=== PATIENT | male | born 1975 | race African-American/Black ===

== ENCOUNTER 2017-09-04 13:11 | Emergency (ER) | payer OTHER ==
[~2017-09-04] VITALS: Ht 175.3 cm; Wt 128.4 kg
[~2017-09-04 13:11] MED LIST: ALDACTONE25 MG PO; CARVEDILOL25 MG PO; COREG PO; K-DUR 20 MEQ T20 MEQ PO; LANOXIN 0.250.25 MG PO; LASIX 40 MG TAB40 M1 PO; LISINOPRIL20 MG PO; SPIRONOLACTONE25 M1 OR
[2017-09-04 13:34] LABS: ABSOLUTE NEUTROPHILS 6.7 thou/uL (1.4-8.2); BASOPHILS 0.7 % (0.0-2.0); EOSINOPHILS 1.9 % (0.0-3.0); HEMATOCRIT 42.2 % (42.0-52.0); HEMOGLOBIN 13.9 gm/dL (14.0-18.0); LYMPHOCYTES 24.5 % (24.0-44.0); MCHC 32.9 g/dL (28.0-37.0); MCV 75.9 fL (80.0-100.0); MONOCYTES 8.2 % (1.0-8.0); PLATELET COUNT 169 thou/uL (150-400); POLYS 64.7 % (36.0-66.0); RBC 5.55 mil/uL (4.50-6.00); RDW 14.7 % (10.5-14.5); WBC 10.4 thou/uL (4.0-11.0)
[2017-09-04 13:42] LABS: CALCIUM 9.2 mg/dL (8.5-10.1); CREATININE 1.1 mg/dL (0.7-1.3); POTASSIUM 3.9 mmol/L (3.5-5.1)
[2017-09-04 13:48] LABS: ALBUMIN 3.9 g/dL (3.4-5.0); TOTAL BILIRUBIN 0.3 mg/dL (<0.1-1.0); TOTAL PROTEIN 7.6 g/dL (6.4-8.2)
[2017-09-04] MEDS ORDERED: BUTALB-APAP-CA1 EACH PO (14:49)
[2017-09-04] MEDS ORDERED: GLUCOPHAGE XR500 MG PO (14:50)
[2017-09-04 15:05] LABS: AMP/METHAMP Negative (Negative); BARBITURATES Negative (Negative); BENZODIAZEPINES Negative (Negative); COCAINE Negative (Negative); METHADONE Negative (Negative); OPIATES Negative (Negative); PCP Negative (Negative)
== END 2017-09-04 15:02 | disposition home or self-care (01) ==
LOC: ER 13:11
PROVIDERS: Physician Assistant
DX: G62.9 Polyneuropathy, unspecified (principal); R73.9 Hyperglycemia, unspecified; R20.0 Anesthesia of skin; R47.81 Slurred speech; I11.0 Hypertensive heart disease with heart failure; I50.20 Unspecified systolic (congestive) heart failure; I42.2 Other hypertrophic cardiomyopathy

== ENCOUNTER 2017-09-17 21:37 | Emergency (ER) | payer OTHER ==
[~2017-09-17] VITALS: Ht 175.3 cm; Wt 122.5 kg
--- NOTE | ~2017-09-17 | EKG ---
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 : 1975 Requested By: Aaron Wade Order Number: [id number] MD: Omar Carranza Measurements Intervals [place] Rate: 84 P: 42 CO: 182 QRS: 7 QRSD: 111 T: 6 QT: 393 QTc: 465 Interpretive Statements Sinus rhythm No significant abnormality Compared to ECG 04/23/2013 07:59:08 Intraventricular conduction delay no longer present Prolonged QT interval no longer present Electronically Signed On 09-18-2017 8:24:46 CDT by Omar Carranza [email or web address] <ELECTRONICALLY SIGNED> By: Omar Carranza MD, [facility] 09/18/17 08 46 46 Omar Carranza MD, [facility] /EPI
[~2017-09-17 21:37] MED LIST changes: +BUTALB-APAP-CA1 EACH PO; +GLUCOPHAGE XR500 MG PO
[2017-09-17 22:29] LABS: HEMOGLOBIN 13.1 gm/dL (14.0-18.0)
[2017-09-17 22:30] LABS: HEMATOCRIT 39.9 % (42.0-52.0); MCHC 32.9 g/dL (28.0-37.0); MCV 76.1 fL (80.0-100.0); RBC 5.25 mil/uL (4.50-6.00); RDW 14.8 % (10.5-14.5); WBC 10.6 thou/uL (4.0-11.0)
[2017-09-17 22:34] LABS: ANION GAP 9 mmol/L (7-16); BUN 21 mg/dL (7-18); CALCIUM 9.9 mg/dL (8.5-10.1); CHLORIDE 103 mmol/L (98-107); CO2 27 mmol/L (21-32); CREATININE 1.5 mg/dL (0.7-1.3); GLUCOSE 174 mg/dL (74-106); POTASSIUM 4.2 mmol/L (3.5-5.1); SODIUM 139 mmol/L (136-145)
[2017-09-17 22:43] LABS: TROPONIN-I < 0.04 ng/mL (<0.06)
[2017-09-17 23:55] LABS: URINE BLOOD NEGATIVE (Negative); URINE CLARITY SL CLOUDY; URINE COLOR YELLOW; URINE GLUCOSE-RANDOM* NEGATIVE (Negative); URINE KETONES TRACE (Negative); URINE NITRITE-REFLEX NEGATIVE (Negative); URINE PROTEIN (DIPSTICK) 2+ (Negative); URINE SPECIFIC GRAVITY >= 1.030 (1.005-1.035); URINE UROBILINOGEN 0.2 E.U./dl (0.2-1.0)
[2017-09-17 23:57] LABS: ICTOTEST (BILI CONFIRMATORY) Negative (Negative); URINE BILIRUBIN NEGATIVE (Negative); URINE LEUKOCYTES-REFLEX 1+ (Negative)
[2017-09-17] MEDS ORDERED: BACTRIM DS TAB1 EACH PO (23:59)
[2017-09-18 00:04] LABS: CRYSTALS None Seen /LPF (None Seen); HYALINE CASTS 4-10 Moderate /LPF (None Seen); SQUAMOUS 0-3 Few /LPF (0-3); URINE RBC 3-10 Few /HPF (0-2); URINE WBC-REFLEX >25 Many /HPF (0-5)
== END 2017-09-18 00:05 | disposition home or self-care (01) ==
LOC: ER 21:37
PROVIDERS: Physician Assistant
DX: N17.9 Acute kidney failure, unspecified (principal); N39.0 Urinary tract infection, site not specified; I11.0 Hypertensive heart disease with heart failure; I50.9 Heart failure, unspecified; E78.5 Hyperlipidemia, unspecified